=== PATIENT | male | born 2000 | race American Indian/Alaskan Native ===

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

== ENCOUNTER 2022-03-30 00:28 | Emergency (ER) | payer SELFPAY ==
[2022-03-30 01:20] VITALS: BP 150/97
== END 2022-03-30 10:39 | disposition home or self-care (01) ==
LOC: ED 00:28
DX: R50.9 Fever, unspecified (principal); R06.02 Shortness of breath; Z53.21 Procedure and treatment not carried out due to patient leaving prior to being seen by health care provider